=== PATIENT | female | born 1955 | race Caucasian/White ===

== ENCOUNTER 2017-05-08 07:38 | Day surgery (SDC) | payer MEDICARE, MEDICAID ==
[~2017-05-08] VITALS: Ht 154.9 cm; Wt 54.9 kg
[~2017-05-08 07:38] MED LIST: ATIV0.5T3 PO; BSS with VANC/TOB/EPI for EYE CASES IR ONE; CYCLOPENTOLATE 2% OPHTH SOLN 2ML BTL OD ONE; EYECAP PO; LIDOCAINE 3.5 % 1ML OPHTH TOPICAL GEL OU ONE; MULT1CHW39 PO; NO HOME MEDS; OFLOXACIN 0.3 % (OCUFLOX) OPTH SOL 5ML OD ONE; PAXI10TA2 PO; PHENYLEPHRINE 2.5% OPHTH SOL 2ML OD ONE; TRAZ50TA2 PO; TROPICAMIDE 1% OPHTH SOLN 2ML OD ONE
[2017-05-08] MEDS ORDERED: LR 1,000 ML IV ONE (08:00)
[2017-05-08] MEDS ORDERED: LIDOCAINE 1% SDV 5 ML VIAL As Ordered ONE (09:22)
[2017-05-08] MEDS ORDERED: HEALON DUET (HEALON 10MG/ML 0.55ML & HEALON ENDOCOAT 30MG/ML 0.85ML) As Ordered ONE (09:22)
[2017-05-08] MEDS ORDERED: POVIDONE-IODINE 5% OPHTH PREP SOL 30ML As Ordered ONE (09:22)
[2017-05-08] MEDS ORDERED: TRIAMCINOLONE PRES FR 40 MG/ML 1ML(TRIESENCE)(OR EYE ONLY)(J3300 PER 1MG) As Ordered ONE (09:22)
[2017-05-08] MEDS ORDERED: MOXIFLOXACIN IN BSS 0.25MG/0.25ML INTRACAMERAL INJ (OR EYE ONLY)(J2280) As Ordered ONE (09:22)
[2017-05-08] MEDS ORDERED: MIDAZOLAM INJ 2 MG/2 ML VIAL (J2250) As Ordered ONE (09:55)
[2017-05-08] MEDS ORDERED: fentaNYL 100 MCG/2 ML INJECTION (J3010) As Ordered ONE (09:55)
[2017-05-08 10:50] VITALS: BP 133/72
== END 2017-05-08 10:57 | disposition home or self-care (01) ==
LOC: M SDC 07:38
PROVIDERS: ATTEND Ophthalmology
DX: H25.9 Unspecified age-related cataract (principal); K21.9 Gastro-esophageal reflux disease without esophagitis; J45.909 Unspecified asthma, uncomplicated; F17.210 Nicotine dependence, cigarettes, uncomplicated; Z88.0 Allergy status to penicillin; Z91.040 Latex allergy status; Z88.5 Allergy status to narcotic agent
CPT/HCPCS: 66984; J2250; J2280; J3010; J3300; V2632

== ENCOUNTER → 2022-02-28 | Outpatient (CLI) | payer MEDICARE, MEDICAID ==
[~2022-02-28] MED LIST changes: -BSS with VANC/TOB/EPI for EYE CASES IR ONE; -CYCLOPENTOLATE 2% OPHTH SOLN 2ML BTL OD ONE; -LIDOCAINE 3.5 % 1ML OPHTH TOPICAL GEL OU ONE; -MULT1CHW39 PO; +MULT200T7 PO; -OFLOXACIN 0.3 % (OCUFLOX) OPTH SOL 5ML OD ONE; -PHENYLEPHRINE 2.5% OPHTH SOL 2ML OD ONE; -TROPICAMIDE 1% OPHTH SOLN 2ML OD ONE
[2022-02-28 15:45] LABS: PLATELET COUNT, AUTOMATED 268 10^3/uL (150-450)
[2022-02-28 16:05] LABS: INR 0.95; PROTHROMBIN TIME 13.1 SECONDS (12.7-14.5)
[2022-02-28 16:06] LABS: PARTIAL THROMBOPLASTIN TIME 38.1 SECONDS (25.9-37.0)
== END ==
LOC: M LAB 15:02
PROVIDERS: ATTEND Physician Assistant
DX: M48.062 Spinal stenosis, lumbar region with neurogenic claudication (principal)

== ENCOUNTER → 2022-03-01 | Outpatient (CLI) | payer MEDICARE, MEDICAID ==
[2022-03-01 15:59] LABS: COLLAGEN EPINEPHRINE 125 SECONDS (74-162)
== END ==
LOC: M LAB 14:55
PROVIDERS: ATTEND Physician Assistant
DX: M51.36 Other intervertebral disc degeneration, lumbar region (principal); M48.062 Spinal stenosis, lumbar region with neurogenic claudication